=== PATIENT | male | born 1985 | race African-American/Black ===

== ENCOUNTER 2021-10-04 02:49 | Emergency (ER) | payer OTHER ==
[~2021-10-04] VITALS: Ht 180.3 cm; Wt 87.7 kg
[2021-10-04] MEDS ORDERED: ALBUTEROL SULFATE 2.5 MG/0.5 ML INH NEB SOLN NEB ONE (03:30)
[2021-10-04] MEDS ORDERED: methylPREDNISolone 125MG 2ML VIAL IM ONE (03:35)
[2021-10-04] MEDS ORDERED: EPIP0.3I2 IM (03:38)
[2021-10-04] MEDS ORDERED: PRED20TA PO (03:38)
[2021-10-04] MEDS ORDERED: VENTAER INH (04:07)
--- OUTSIDE RECORDS SUMMARY | 2021-10-04 04:21 | CCD | Continuity of Care Document ---
Author Author Markos RAY DPM Organization Unknown Address [address] [place] [address] Phone [phone] Care Team Providers Care Operator Specialist Communications Name Role Phone [facility] Adal Yanez raheel AUTM Unavailable Problems Description No Information Available Social History Type Date Description Comments Sex Unknown Tobacco Use Start: Unknown Patient has never smoked Smoking Status Reviewed: 09/10/21 Patient has never smoked Allergies and adverse reactions Active Allergies Criticality Reaction | Severity Comments Date NKDA Unable to assess criticality 07/27/2021 Shellfish-Derived Products Unable to assess criticality 07/27/2021 Medications Active Medications SIG Qnty Indications Ordering Provide r Date Inserts And Gel Metatarsal Pad Please dispense 1 pair of OTC inserts and a gel metatarsal pad for right foot M77.41 Horace Ray DPM 0 08/13/2021 History Medications Methylprednisolone 4mg TBPK take tablets by mouth as directed on packaging till all taken 21units M77.41 Horace Ray DPM 08/27/2021 - 09/10/2021 No Active Medications Unknown - 08/13/2021 Immunizations Description No Information Available Vital Signs Description No Information Available Results Description No Information Available Procedures Date Code Description Status 09/10/2021 42215 Office/Outpatient Established Mi nimal Problem(S) Completed 08/27/2021 51623 Office/Outpatient Established SF MDM 10-19 Min Completed 08/13/2021 27821 Office/Outpatient Established Lo w MDM 20-29 Min Completed 07/27/2021 56650 Office/Outpatient New Low MDM 30 -44 Minutes Completed Medical Devices Description No Information Available Encounters Type Date Location Provider Dx Diagnosis Office Visit 09/10/2021 3:30p [facility] Horace Ray DPM M77.41 Metatarsalgia, right foot M21.611 Bunion of right foot Assessments Date Code Description Provider 09/10/2021 M77.41 Metatarsalgia, right foot Horace Ray, DPM 09/10/2021 M21.611 Bunion of right foot Horace Ray , DPM 08/27/2021 M77.41 Metatarsalgia, right foot Horace Ray, DPM 08/27/2021 M21.611 Bunion of right foot Horace Ray , DPM 08/13/2021 M77.41 Metatarsalgia, right foot Horace Ray, DPM 08/13/2021 M21.611 Bunion of right foot Horace Ray , DPM 07/27/2021 M77.41 Metatarsalgia, right foot Horace Ray, DPM 07/27/2021 M21.611 Bunion of right foot Horace Ray , DPM Plan of Treatment 09/10/2021 - Horace Ray, DPSupa* M77.41 Metatarsalgia, right foot* Follow up:* Patient was advised to follow up as needed. * Recommendations:* 1. The patient was seen and evaluated. 2. He is actually doing very well and is not having any pain. He was able to take only 3 days of the oral steroids and did not like the way it made him fee. So, he stopped taking it and his pain resolved. He has started doing light jogging and doing activities he can tolerate. He may ease back and return to all activities and follow up if there are any concerns. If no return of pain, we will plan to do a walking boot. * M21.611 Bunion of right foot Functional Status Description No Information Available Mental Status Description No Information Available Referrals Description No Information Available"
--- OUTSIDE RECORDS SUMMARY | 2021-10-04 04:21 | CCD | Continuity of Care Document ---
Author Author Markos RAY DPM Organization Unknown Address [address] [place] [address] Phone [phone] Care Team Providers Care Embossing Toolsetter Name Role Phone [facility] Adal Yanez raheel AUTM Unavailable Problems Description [...] Available Procedures Date Code Description Status 09/10/2021 81862 Office/Outpatient Established Mi nimal Problem(S) Completed 08/27/2021 72419 Office/Outpatient Established SF MDM 10-19 Min Completed 08/13/2021 18837 Office/Outpatient Established Lo w MDM 20-29 Min Completed 07/27/2021 84693 Office/Outpatient New Low MDM 30 -44 Minutes [...]
--- OUTSIDE RECORDS SUMMARY | 2021-10-04 04:21 | CCD | Continuity of Care Document ---
Author Author Markos RAY DPM Organization Unknown Address [address] [place] [address] Phone [phone] Care Team Providers Care Suction Worker Name Role Phone [facility] Adal Yanez raheel AUTM Unavailable Problems [...] Available Procedures Date Code Description Status 09/10/2021 74987 Office/Outpatient Established Mi nimal Problem(S) Completed 08/27/2021 02776 Office/Outpatient Established SF MDM 10-19 Min Completed 08/13/2021 43251 Office/Outpatient Established Lo w MDM 20-29 Min Completed 07/27/2021 13833 Office/Outpatient New Low MDM 30 -44 Minutes [...]
--- OUTSIDE RECORDS SUMMARY | 2021-10-04 04:21 | CCD | Continuity of Care Document ---
Author Author Markos RAY DPSupa Organization Unknown Address [address] [place] [address] Phone [phone] Care Team Providers Care Teletray Operator Name Role Phone [facility] Adal Yanez raheel AUTM Unavailable Problems Description No Information Available Social History Type Date Description Comments Sex Unknown Tobacco Use Start: Unknown Patient has never smoked Smoking Status Reviewed: 08/27/21 Patient has never smoked Allergies and adverse reactions Active Allergies Criticality Reaction | Severity Comments Date NKDA Unable to assess criticality 07/27/2021 Shellfish-Derived Products Unable to assess criticality 07/27/2021 Medications Active Medications SIG Qnty Indications Ordering Provide r Date Methylprednisolone 4mg TBPK take tablets by mouth as directed on packaging till all taken 21units M77.41 Horace Ray DPM 08/27/2021 Inserts And Gel Metatarsal Pad Please dispense 1 pair of OTC inserts and a gel metatarsal pad for right foot M77.41 Horace Ray DPM 0 08/13/2021 History Medications No Active Medications Unknown - 08/13/2021 Immunizations Description No Information Available Vital Signs Description No Information Available Results Description No Information Available Procedures Date Code Description Status 08/27/2021 30987 Office/Outpatient Established SF MDM 10-19 Min Completed 08/13/2021 16136 Office/Outpatient Established Lo w MDM 20-29 Min Completed 07/27/2021 07903 Office/Outpatient New Low MDM 30 -44 Minutes Completed Medical Devices Description No Information Available Encounters Type Date Location Provider Dx Diagnosis Office Visit 08/27/2021 11:30a [facility] Horace Ray DPM M77.41 Metatarsalgia, right foot M21.611 Bunion of right foot Assessments Date Code Description Provider 08/27/2021 M77.41 Metatarsalgia, right foot Horace Ray, DANIEL 08/27/2021 M21.611 Bunion of right foot Horace Ray , DPM 08/13/2021 M77.41 Metatarsalgia, right foot Horace Ray, DPM 08/13/2021 M21.611 Bunion of right foot Horace Ray , DPM 07/27/2021 M77.41 Metatarsalgia, right foot Horace Ray, DPM 07/27/2021 M21.611 Bunion of right foot Horace CarmenDANIEL weiss Plan of Treatment Future Appointment(s):* 09/10/2021 11:15 am - Horace Ray DPM at [facility] Podiatry 08/27/2021 - Horace Ray DPM* M77.41 Metatarsalgia, right foot* New Medication: * Methylprednisolone 4 mg - take tablets by mouth as directed on packaging till all taken * Follow up:* Patient was advised to follow up in 2-3 weeks or sooner should any new issues arise. * Recommendations:* 1. The patient was seen and evaluated. 2. He is doing a little better than he was at last visit with inserts and padding seems to help some. He had relief of his symptoms when he was on vacation. He returned to work and stayed active and got the pain back. We discussed additional options including custom orthotics, Medrol Dosepak, or resting it for a period of time with walking boot. He would like oral steroids and Medrol Dosepak was ordered. He may follow up in 2-3 weeks. If it does not work, we will plan to rest him with a walking boot. * M21.611 Bunion of right foot Functional Status Description No Information Available Mental Status Description No Information Available Referrals Description No Information Available"
--- OUTSIDE RECORDS SUMMARY | 2021-10-04 04:21 | CCD | Continuity of Care Document ---
Author Author Markos RAY DPM Organization Unknown Address [address] [place] [address] Phone [phone] Care Team Providers Care Health Information Manager Name Role Phone [facility] Adal Yanez raheel AUTM Unavailable Problems Description [...] metatarsal pad for right foot M77.41 Horace aRy DPM 0 08/13/2021 History Medications Methylprednisolone 4mg TBPK take tablets by mouth as directed on packaging till all taken 21units M77.41 Horace Ray DPM 08/27/2021 - 09/10/2021 No Active Medications Unknown - 08/13/2021 Immunizations Description No Information Available Vital Signs Description No Information Available Results Description No Information Available Procedures Date Code Description Status 09/10/2021 58640 Office/Outpatient Established Mi nimal Problem(S) Completed 08/27/2021 23990 Office/Outpatient Established SF MDM 10-19 Min Completed 08/13/2021 83959 Office/Outpatient Established Lo w MDM 20-29 Min Completed 07/27/2021 41802 Office/Outpatient New Low MDM 30 -44 Minutes [...]
--- OUTSIDE RECORDS SUMMARY | 2021-10-04 04:21 | CCD | Continuity of Care Document ---
Author Author Markos RAY DPSupa Organization Unknown Address [address] [place] [address] Phone [phone] Care Team Providers Care Insurance Administrator Name Role Phone [facility] Adal Yanez raheel AUTM Unavailable [...] Available Procedures Date Code Description Status 08/27/2021 44302 Office/Outpatient Established SF MDM 10-19 Min Completed 08/13/2021 13003 Office/Outpatient Established Lo w MDM 20-29 Min Completed 07/27/2021 04623 Office/Outpatient New Low MDM 30 -44 Minutes [...] 11:15 am - Horace Ray DPM at [facility] Podiatry 08/27/2021 - Horace Ray DPM* M77.41 [...]
--- OUTSIDE RECORDS SUMMARY | 2021-10-04 04:22 | CCD | Continuity of Care Document ---
Author Author Markos RAY DPSupa Organization Unknown Address [address] [place] [address] Phone [phone] Care Team Providers Care Housekeeper/Custodian/Laundry Worker Name Role Phone [facility] Adal Yanez raheel AUTM Unavailable Problems [...] Available Procedures Date Code Description Status 08/27/2021 37745 Office/Outpatient Established SF MDM 10-19 Min Completed 08/13/2021 62187 Office/Outpatient Established Lo w MDM 20-29 Min Completed 07/27/2021 01700 Office/Outpatient New Low MDM 30 -44 Minutes [...] 11:15 am - Horace Ray DPM at [facility] Podiatry 08/27/2021 - Horace Ray DPM* M77.41 [...]
--- OUTSIDE RECORDS SUMMARY | 2021-10-04 04:22 | CCD | Continuity of Care Document ---
Author Author Markos RAY DPSupa Organization Unknown Address [address] [place] [address] Phone [phone] Care Team Providers Care Soft Sugar Operator Head Name Role Phone [facility] Adal Yanez raheel AUTM Unavailable Problems Description [...] Available Procedures Date Code Description Status 08/27/2021 21518 Office/Outpatient Established SF MDM 10-19 Min Completed 08/13/2021 59294 Office/Outpatient Established Lo w MDM 20-29 Min Completed 07/27/2021 06360 Office/Outpatient New Low MDM 30 -44 Minutes [...] 11:15 am - Horace Ray DPM at [facility] Podiatry 08/27/2021 - Horace Ray DPM* [...]
--- OUTSIDE RECORDS SUMMARY | 2021-10-04 04:22 | CCD | Continuity of Care Document ---
Author Author Markos RAY DPSupa Organization Unknown Address [address] [place] [address] Phone [phone] Care Team Providers Care Billing And Insurance Coordinator Name Role Phone [facility] Adal Yanez raheel AUTM Unavailable Problems Description [...] Available Procedures Date Code Description Status 08/27/2021 60718 Office/Outpatient Established SF MDM 10-19 Min Completed 08/13/2021 25457 Office/Outpatient Established Lo w MDM 20-29 Min Completed 07/27/2021 06909 Office/Outpatient New Low MDM 30 -44 Minutes [...] 11:15 am - Horace Ray DPM at [facility] Podiatry 08/27/2021 - Horace Ray [...]
--- OUTSIDE RECORDS SUMMARY | 2021-10-04 04:22 | CCD | Continuity of Care Document ---
Author Author Markos RAY DPM Organization Unknown Address [address] [place] [address] Phone [phone] Care Team Providers Care Tow Boat Captain Name Role Phone [facility] Adal Yanez raheel AUTM Unavailable Problems Description No Information Available Social History Type Date Description Comments Sex Unknown Tobacco Use Start: Unknown Patient has never smoked Smoking Status Reviewed: 07/27/21 Patient has never smoked Allergies, Adverse Reactions, Alerts Active Allergies Criticality Reaction | Severity Comments [...] Information Available Procedures Date Code Description Status 08/13/2021 26116 Office/Outpatient Established Lo w MDM 20-29 Min Completed 07/27/2021 55168 Office/Outpatient New Low MDM 30 -44 Minutes Completed Medical Devices Description No Information Available Encounters Type Date Location Provider Dx Diagnosis Office Visit 08/13/2021 11:15a [facility] Horace Ray DPM M77.41 Metatarsalgia, right foot M21.611 Bunion of right foot Assessments Date Code Description Provider 08/13/2021 M77.41 Metatarsalgia, right foot Horace Ray DPM 08/13/2021 M21.611 Bunion of right foot Horace Ray DPM 07/27/2021 M77.41 Metatarsalgia, right foot Horace Ray DPM 07/27/2021 M21.611 Bunion of right foot Horace Ray DPM Plan of Treatment Future Appointment(s):* 08/27/2021 11:30 am - Horace Ray DPM at [facility] Podiatry 08/13/2021 - Horace Ray DPM* M77.41 Metatarsalgia, right foot* New Medication: * Inserts And Gel Metatarsal Pad - Please dispense 1 pair of OTC inserts and a gel metatarsal pad for right foot * M21.611 Bunion of right foot Functional Status Description No Information Available Mental Status Description No Information Available Referrals Description No Information Available"
--- OUTSIDE RECORDS SUMMARY | 2021-10-04 04:22 | CCD ---
Author Author [facility] Organization [facility] Address Unknown Phone Unavailable Care Team Providers Care Mulcher Operator Name Role Phone FORNI, R CHENCHO DPM Unavailable Unavailable FORNI, R CHENCHO DPM Unavailable Unavailable FORNI, R CHENCHO DPM Unavailable Unavailable FORNI, R CHENCHO DPM Unavailable Unavailable FORNI, R CHENCHO DPM Unavailable Unavailable FORNI, R CHENCHO DPM Unavailable Unavailable FORNI, R CHENCHO DPM Unavailable Unavailable FORNI, R CHENCHO DPM Unavailable Unavailable FORNI, R CHENCHO DPM Unavailable Unavailable FORNI, R CHENCHO DPM Unavailable Unavailable FORNI, R CHENCHO DPM Unavailable Unavailable FORNI, R CHENCHO DPM Unavailable Unavailable FORNI, R CHENCHO DPM Unavailable Unavailable FORNI, R CHENCHO DPM Unavailable Unavailable FORNI, R CHENCHO DPM Unavailable Unavailable FORNI, R CHENCHO DPM Unavailable Unavailable FORNI, R CHENCHO DPM Unavailable Unavailable FORNI, R CHENCHO DPM Unavailable Unavailable FORNI, R CHENCHO DPM Unavailable Unavailable FORNI, R CHENCHO DPM Unavailable Unavailable NON, PHYSICIAN STAFF Unavailable Unavailable Re-disclosure Warning The records that you are about to access may contain information from federally-assisted alcohol or drug abuse programs. If such information is present, then the following federally mandated warning applies: This information has been disclosed to you from records protected by federal confidentiality rules (42 CFR part 2). The federal rules prohibit you from making any further disclosure of this information unless further disclosure is expressly permitted by the written consent of the person to whom it pertains or as otherwise permitted by 42 CFR part 2. A general authorization for the release of medical or other information is NOT sufficient for this purpose. The Federal rules restrict any use of the information to criminally investigate or prosecute any alcohol or drug abuse patient.The records that you are about to access may contain highly sensitive health information, the redisclosure of which is protected by Article 27-F of the [facility] Public Health law. If you continue you may have access to information: Regarding HIV / AIDS; Provided by facilities licensed or operated by the [facility] Office of Mental Health; or Provided by the [facility] Office for People With Developmental Disabilities. If such information is present, then the following [facility] mandated warning applies: This information has been disclosed to you from confidential records which are protected by state law. State law prohibits you from making any further disclosure of this information without the specific written consent of the person to whom it pertains, or as otherwise permitted by law. Any unauthorized further disclosure in violation of state law may result in a fine or long-term sentence or both. A general authorization for the release of medical or other information is NOT sufficient authorization for further disc losure. Encounters Encounter Providers Location Date Indications Data Source(s ) Outpatient Attender: CHENCHO ZEPEDAonsultant: STAFF NON 09/10/2021 03:35:00 PM EDT - 09/10/2021 03:35:00 PM EDT [facility] Outpatient Attender: CHENCHO RAY DPM Family Practice 09/10/2021 0 3:30:00 PM EDT [facility] ([facility]) Outpatient Attender: CHENCHO RAY DPM Family Practice 08/27/2021 1 1:30:00 AM EDT [facility] ([facility]) Outpatient Attender: CHENCHO ZEPEDAonsultant: STAFF NON 08/27/2021 11:14:00 AM EDT - 08/27/2021 11:14:00 AM EDT [facility] Outpatient Attender: CHENCHO RAY DPM Family Practice 08/13/2021 1 1:15:00 AM EDT [facility] ([facility]) Outpatient Attender: CHENCHO ZEPEDAonsultant: STAFF NON 08/13/2021 11:10:00 AM EDT - 08/13/2021 11:10:00 AM EDT [facility] Outpatient Attender: CHENCHO RAY DPonsultant: STAFF NON 08/06/2021 02:32:29 PM EDT - 08/10/2021 08:17:00 AM EDT [facility] Patient discharged. Outpatient Attender: CHENCHO RAY DPSupa 2020 01:12:00 PM EDT - 07/27/2021 01:12:00 PM EDT [facility] Medications Medication Brand Name Start Date Product Form Dose Route Admi nistrative Instructions Pharmacy Instructions Status Indications Reaction Description Data Source(s) Methylprednisolone Methylprednisolone 08/27/2021 12:00:00 AM EDT ORAL completed [facility] ([facility]) Inserts And Gel Metatarsal Pad 08/13/2021 12:00:00 AM EDT active [facility] ([facility]) No Active Medications 07/27/2021 12:00:00 AM EDT completed [facility] ([facility]) Insurance Providers Payer name Policy type / Coverage type Policy ID Covered alliance party ID Covered alliance party's relationship to crockett Policy Crockett Plan Information [facility] ACTIVE DUTY [id number] SP [id number] [facility] [place] [id number] 18 [id number] [facility] [place] [id number] 18 [id number] Problems, Conditions, and Diagnoses Code Display Name Description Problem Type Effective Dates Data Source(s) Q17683 Bunion of right foot Bunion of right foot Diagnosis 09/10/2021 03:35:00 PM EDT [facility] M7741 Metatarsalgia, right foot Metatarsalgia, right foot Di agnosis 09/10/2021 03:35:00 PM EDT [facility] [id number] Contusion of right foot, initial encount er Contusion of right foot, initial encounter Diagnosis 08/10/2021 07:17:00 AM EDT [facility] Surgeries/Procedures Procedure Description Date Indications Data Source(s) OFFICE OUTPATIENT VISIT 5 MINUTES 09/10/2021 12:00:00 AM EDT [facility] ([facility]) OFFICE OUTPATIENT VISIT 10 MINUTES 08/27/2021 12:00:00 AM EDT [facility] ([facility]) OFFICE OUTPATIENT VISIT 15 MINUTES 08/13/2021 12:00:00 AM EDT [facility] ([facility]) OFFICE OUTPATIENT NEW 30 MINUTES 07/27/2021 12:00:00 A M EDT [facility] ([facility]) Results ID Date Data Source [id number] 08/10/2021 08:51:00 PM EDT [facility] [address] [place] [address] PHONE: [phone] FAX: [phone] Name .................. : REYEZ STACY Parr Acct Number.................. : [id number] ROOM. ................. : Number ................... : [id number] Stay type ............. : O/P Discharge Date......... ... : Admit Date ......... : Admit Phys .................... : MARIA M Date of ....... : 1985 Family Phys ................... : NON STAFF Phone .................. : [phone] Age ................................ : 35 Film# .................. .:[id number] Sex ................................. : M Unsigned transcriptions are preliminary reports and do not represent a medical or legal document MRI LOWER EXT W/O CONTRAST RT [id number] COMPLETE:08/10/21 18:32 KMB [id number] Reason for Exam: METATARSALGIA RIGHT FOOT MRI RIGHT FOOT WITHOUT CONTRAST INDICATION: Pain fourth and fifth metatarsals. Kicked a couch in February. COMPARISON: None CONTRAST: None TECHNIQUE: Multiplanar imaging is performed of the foot using multiple pulse sequences. FINDINGS: LIGAMENTS: Intact. TENDONS: Intact. MUSCLES: No muscle atrophy or edema. BONES: No fracture identified. Small focus of subcortical marrow edema in the fifth metatarsal head laterally. This is likely a bone contusion. No destructive bone lesions. JOINTS: The visible joint spaces appear well preserved. No subluxation or dislocation. No significant joint effusion. No osteochondral defects. IMPRESSION: Small bone contusion fifth metatarsal head. No fracture. Electronically Reviewed and Signed By Praful Santana MD , 08/10/21 20:51, JWKarolyn Transcribe Initials: ROBERTO , Transcribe Date: 08/10/21 20:44, Dictation Date: Page 1 of 2 [place] [address] PHONE: [phone] FAX: [phone] Name .................. : AISSATOU Parr Acct Number.................. : [id number] ROOM. ................. : MR Number ................... : [id number] Stay type ............. : O/P Discharge Date......... ... : Admit Date ......... : Admit Phys .................... : JAYLA Date of ....... : 1985 Family Phys ................... : NON STAFF Phone .................. : [phone] Age ................................ : 35 Film# .................. .:[id number] Sex ................................. : M Unsigned transcriptions are preliminary reports and do not represent a medical or legal document MRI LOWER EXT W/O CONTRAST RT [id number] COMPLETE:08/10/21 18:32 KMB [id number] Reason for Exam: METATARSALGIA RIGHT FOOT Copy for: CORY Craig via fax Copy for: 710 MED REC Page 2 of 2 Name Value Range Interpretation Code Description Data Cheyanne rce(s) Supporting Document(s) Procedure Social History Code Duration Value Status Description Data Source(s ) Smoking 09/10/2021 12:00:00 AM EDT Patient has never smoked co mpleted Patient has never smoked [facility] ([facility])
[2021-10-04 04:39] VITALS: BP 124/79
== END 2021-10-04 04:44 | disposition home or self-care (01) ==
LOC: M ED 02:49
DX: R06.2 Wheezing (principal); T78.1XXA Other adverse food reactions, not elsewhere classified, initial encounter; Y92.89 Other specified places as the place of occurrence of the external cause; Z91.018 Allergy to other foods
CPT/HCPCS: 94640; 96372; 99283; J2930